=== PATIENT | female | born 1990 | race Caucasian/White ===

== ENCOUNTER 2019-09-15 08:23 | Inpatient (IN) | payer MEDICAID ==
[~2019-09-15] VITALS: Ht 170.2 cm; Wt 58.1 kg
[2019-09-15] MEDS ORDERED: SERT50TA12 PO (08:49)
[2019-09-15] MEDS ORDERED: ALPR0.5T8 PO (08:49)
[2019-09-15 09:09] LABS: BASOPHILS % (AUTO) 0.9 % (0.0-2.0); EOSINOPHILS % (AUTO) 0.4 % (1.0-6.0); HEMATOCRIT 39.9 % (36-46); HEMOGLOBIN 13.7 g/dL (12.0-16.0); LYMPHOCYTES # (AUTO) 0.8 K/uL (1.0-4.8); LYMPHOCYTES % (AUTO) 16.2 % (22.0-44.0); MEAN CORPUSCULAR HEMOGLOBIN 31.4 pg (26.0-34.0); MEAN CORPUSCULAR HGB CONC 34.3 G/dL (31.0-37.0); MEAN CORPUSCULAR VOLUME 92 fL (80-100); MONOCYTES # (AUTO) 0.3 K/uL (0.1-1.0); MONOCYTES % (AUTO) 5.3 % (2.0-9.0); NEUTROPHILS # (AUTO) 3.7 K/uL (1.8-7.7); NEUTROPHILS % (AUTO) 77.2 % (40.0-70.0); PLATELET COUNT (AUTO) 239 K/uL (150-450); RED BLOOD CELL COUNT(AUTO) 4.36 MIL/uL (4.00-5.20); RED CELL DISTRIBUTION WIDTH 12.5 % (11.5-14.5)
[2019-09-15 09:26] LABS: ANION GAP 6 mmol/L (8-16); CALCIUM, TOTAL 9.6 mg/dL (8.8-10.5); CARBON DIOXIDE 29 mmol/L (22-29); CHLORIDE 101 mmol/L (98-107); CREATININE 0.88 mg/dL (0.60-1.30); GLOMERULAR FILTR. RATE CALC > 60 mL/min (>60); GLUCOSE,RANDOM 109 mg/dL (70-110); SODIUM SERUM 136 mmol/L (136-145); UREA NITROGEN, BLOOD 11 mg/dL (7-18)
[2019-09-15 09:31] LABS: ALANINE AMINOTRANSFERASE 25 U/L (12-78); ALBUMIN 4.8 g/dL (3.4-5.0); ALKALINE PHOSPHATASE 43 U/L (46-116); ASPARTATE AMINOTRANSFERASE 25 U/L (15-37); BILIRUBIN,TOTAL 1.1 mg/dL (0.1-1.0); HCG,QUANTITATIVE 1 mIU/mL (0-6); TOTAL PROTEIN, SERUM 8.4 g/dL (6.4-8.2)
[2019-09-15] MEDS ORDERED: HALOPERIDOL 5 MG TABLET PO PRN (11:00)
[2019-09-15] MEDS ORDERED: ZOLPIDEM TARTRATE 10 MG TABLET PO PRN (11:00)
[2019-09-15] MEDS ORDERED: LORazepam 2 MG TABLET PO PRN (11:00)
[2019-09-15 14:09] VITALS: BP 128/86
[2019-09-15 16:14] VITALS: BP 110/69
[2019-09-16 02:30] VITALS: BP 114/64
[2019-09-16] MEDS ORDERED: MAGNESIUM HYDROXIDE SUSPENSION 30 ML UDCUP PO PRN (07:30)
[2019-09-16] MEDS ORDERED: ONDANSETRON HCL 4 MG TABLET PO PRN (07:30)
[2019-09-16] MEDS ORDERED: NICOTINE 14 MG/24 HOUR PATCH TD PRN (07:30)
[2019-09-16] MEDS ORDERED: GuaiFENesin/D-METHORPHAN [SUGAR-FREE] 200-20MG/10 ML SYRUP UDCUP PO PRN (07:30)
[2019-09-16] MEDS ORDERED: ALBUTEROL SULFATE HFA 90 MCG/PUFF 8 GM INHALER IH PRN (07:30)
[2019-09-16] MEDS ORDERED: CloNIDine HCL 0.1 MG TABLET PO PRN (07:30)
[2019-09-16] MEDS ORDERED: DOCUSATE SODIUM 100 MG CAPSULE PO PRN (07:30)
[2019-09-16] MEDS ORDERED: MAG HYDROX/AL HYDROX/SIMETH ES 30 ML SUSPENSION UDCUP PO PRN (07:30)
[2019-09-16] MEDS ORDERED: LOPERAMIDE HCL 2 MG CAPSULE PO PRN (07:30)
[2019-09-16] MEDS ORDERED: IBUPROFEN 400 MG TABLET PO PRN (07:30)
[2019-09-16] MEDS ORDERED: ACETAMINOPHEN 325 MG TABLET PO PRN (07:30)
[2019-09-16] MEDS ORDERED: PETROLATUM,WHITE 28 GM JELLY TP PRN (07:30)
[2019-09-16 08:24] VITALS: BP 120/76
[2019-09-16 08:30] LABS: CHOL/HDL RATIO 1.8 (3.9-5.7)
[2019-09-16] MEDS: SERTRALINE HCL 50 MG TABLET PO SCH (13:15)
[2019-09-16 16:09] VITALS: BP 113/72
[2019-09-17 04:46] VITALS: BP 118/78
[2019-09-17] MEDS: SERTRALINE HCL 50 MG TABLET PO SCH (09:14)
[2019-09-17 17:00] VITALS: BP 115/71
[2019-09-17] MEDS ORDERED: RisperiDONE 1 MG TABLET PO SCH (21:00)
[2019-09-18 00:17] VITALS: BP 118/81
[2019-09-18] MEDS: SERTRALINE HCL 50 MG TABLET PO SCH (08:17)
[2019-09-18 08:38] VITALS: BP 118/84
[2019-09-18] MEDS ORDERED: RISP1TAB89 PO (09:13)
== END 2019-09-18 09:50 | disposition home or self-care (01) | DRG 885 ==
LOC: EMS 08:25 → B2S 13:07
DX: F29 Unspecified psychosis not due to a substance or known physiological condition (principal); R17 Unspecified jaundice; F43.12 Post-traumatic stress disorder, chronic; F20.0 Paranoid schizophrenia; G44.209 Tension-type headache, unspecified, not intractable; F32.9 Major depressive disorder, single episode, unspecified; R00.0 Tachycardia, unspecified; Z91.14 Patient's other noncompliance with medication regimen; Z79.899 Other long term (current) drug therapy
CPT/HCPCS: G0480